=== PATIENT | female | born 1990 | race Caucasian/White ===

== ENCOUNTER 2016-08-19 13:22 | Emergency (ER) | payer MEDICAID ==
[2016-08-19 13:27] VITALS: RESP 16; TEMP 97.9
--- NOTE | 2016-08-19 14:53 | EDPHY ---
H & P Time Seen by Provider: 08/19/16 13:51 HPI/ROS: Chief complaint. Lump on back HPI. 25-year-old female left back lump for about 1 year. Gradually getting larger. Has become tender in the last several days. Went to urgent cares who referred her to the emergency department. No other complaints. No fever. No trauma to the area. ROS Constitutional. no fever/chills, no weakness Eyes. no problems with vision ENT. no sore throat, no nasal drainage Cardiovascular. no chest pain Respiratory. no shortness of breath, no cough Abdominal. no abdominal pain, no nausea/vomiting, no diarrhea . no problems urinating MS. no calf pain/swelling, no neck/back pain, no joint pain Skin. Lump on back Lymph. no swollen glands Neuro. no headache, no dizziness, no difficulty walking or with speech Past Medical/Surgical History: Asthma Social History: Single, nonsmoker, no alcohol Smoking Status: Never smoked Physical Exam: General Appearance: Alert well-developed female mild distress vital signs stable Eyes: Pupils equal and round no pallor or injection. ENT, Mouth: Mucous membranes are moist. Respiratory: There are no retractions, lungs are clear to auscultation. Cardiovascular: Regular rate and rhythm. Gastrointestinal: Abdomen is soft and nontender, no masses, bowel sounds normal. Neurological: Awake and alert, sensory and motor exams grossly normal. Skin: 3 x 5 cm lipoma over the left scapula. No evidence for infection Musculoskeletal: Neck is supple nontender. Extremities symmetrical, full range of motion. Psychiatric: Patient is oriented X 3, there is no agitation. Constitutional: Initial Vital Signs Temperature (C) 36.6 C 08/19/16 13:23 Heart Rate 85 08/19/16 13:23 Respiratory Rate 16 08/19/16 13:23 Blood Pressure 112/79 08/19/16 13:23 O2 Sat (%) 98 08/19/16 13:23 O2 Delivery Mode Room Air Allergies/Adverse Reactions: corn Allergy (Verified 08/19/16 13:28) horse dander Allergy (Verified 08/19/16 13:27) horse Allergy (Uncoded 08/19/16 13:27) Home Medications: Medication Instructions Recorded Cephalexin [Keflex (*)] 500 mg PO TID #12 cap 08/19/16 Medical Decision Making ED Course/Re-evaluation: Procedure--1% lidocaine with epinephrine is infiltrated into the area over the lipoma. The area is prepped for sterile incision. A 2 cm incision is made and a fatty lipoma is removed. Cavity is irrigated. It is sutured with 840 Prolene sutures. Patient tolerated the procedure well Patient and I discussed treatment plan including criteria for return importance of follow-up and further evaluation. She expresses understanding and agreement Differential Diagnosis: I considered abscess, lipoma Departure - Departure Disposition: Home, Routine, Self-Care Clinical Impression: Lipoma of back Condition: Good Instructions: Care For Your Stitches (ED) Additional Instructions: You may shower with you stitches in. Ibuprofen for pain. Cephalexin is antibiotic. Return for worsening pain, fever. Stitches out 10 days. I will also refer you to surgeon for further evaluation and treatment if necessary. Referrals: Andrew Gilmore MD [Medical Doctor] - 5-7 days, if not improved Prescriptions: Cephalexin [Keflex (*)] 500 mg PO TID #12 cap
[2016-08-19 15:22] VITALS: BP 110/80; PULSE 80; O2SAT 95
== END 2016-08-19 15:17 | disposition home or self-care (01) ==
PROC: 0HB6XZZ Excision of Back Skin, External Approach (ICD-10-PCS; principal; 2016-08-19)
DX: D17.1 Benign lipomatous neoplasm of skin and subcutaneous tissue of trunk (principal); J45.909 Unspecified asthma, uncomplicated